=== PATIENT | male | born 1970 | race African-American/Black ===

== ENCOUNTER 2018-06-28 12:13 | Emergency (ER) | payer MEDICARE ==
[2018-06-28 12:25] VITALS: BP 177/90
--- NOTE | 2018-06-28 13:14 | ER Document Report ---
ED Medical Screen (RME) - General Chief Complaint: Foot Injury Stated Complaint: CUT ON LEFT FOOT Time Seen by Provider: 06/28/18 13:10 Mode of Arrival: Ambulatory Information source: Patient Notes: 48-year-old man with a history of diabetes, hypertension, stroke who presents with blister to the bottom of his right foot. Patient is visiting from [place] and was walking on the beach yesterday and noticed a blister this morning. Did not go in the water and he was wearing socks the whole time. He has not had any pain. He does have some amount of neuropathy but has sensation to the foot. 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 He denies any fever or pus drainage. He has cleaned the wound with soap and water , peroxide and is placed bacitracin over the wound. TRAVEL OUTSIDE OF THE [place] IN LAST 30 DAYS: No - HPI Onset: Just prior to arrival Onset/Duration: Gradual Quality of pain: No pain Associated Symptoms: None, Other - No pain, no redness, no discharge.. denies: Fever Exacerbated by: Denies Relieved by: Denies Similar symptoms previously: Yes Recently seen / treated by doctor: No - Related Data Smoking: Non-smoker Frequency of alcohol use: None Drug Abuse: None Allergies/Adverse Reactions: Sulfa (Sulfonamide Antibiotics) Adverse Reaction (Severe, Verified 06/28/18 12: 16) Past Medical History - General Information source: Patient - Social History Cigarette use (# per day): No Chew tobacco use (# tins/day): No Frequency of alcohol use: None Drug Abuse: None Lives with: Family Family history: None - Past Medical History Cardiac Medical History: Reports: Hx Hypertension Pulmonary Medical History: Reports: Hx Asthma Endocrine Medical History: Reports: Hx Diabetes Mellitus Type 2 Renal/ Medical History: Reports: Hx End Stage Renal Disease, Hx Peritoneal Dialysis Past Surgical History: Reports: Hx Orthopedic Surgery Review of Systems - Review of Systems Constitutional: denies: Chills, Fever EENT: No symptoms reported Cardiovascular: denies: Chest pain, Palpitations, Heart racing Respiratory: No symptoms reported Gastrointestinal: No symptoms reported Genitourinary: No symptoms reported Musculoskeletal: See HPI Skin: See HPI Hematologic/Lymphatic: No symptoms reported Neurological/Psychological: No symptoms reported Physical Exam - Vital signs Vitals: Temp Pulse Resp BP Pulse Ox 98.2 F 92 18 177/90 H 100 06/28/18 12:20 06/28/18 12:20 06/28/18 12:20 06/28/18 12:20 06/28/18 12:20 Notes: Physical exam: GENERAL: 48-year-old man, alert and oriented 3, no acute distress. He appears well. HEAD: Atraumatic, normocephalic. EYES: Pupils equal round and reactive to light, extraocular movements intact, sclera anicteric, conjunctiva are normal. ENT: Moist mucous membranes. NECK: Normal range of motion, supple without obvious mass LUNGS: Breath sounds clear to auscultation bilaterally and equal. No wheezes rales or rhonchi. HEART: Regular rate and rhythm without murmurs, rubs or gallops. ABDOMEN: Soft, normoactive bowel sounds. No tenderness to palpation. No guarding, no rebound. No masses appreciated. EXTREMITIES: Left foot: Patient has had amputations of the first 2 toes. He does have a blister which is popped over the right MTP joint. There is no erythema, warmth or discharge. The tissue appears viable and clean. There is no evidence of infection. There is no tenderness. There is no evidence of foreign body. The foot is well-perfused. NEUROLOGICAL: Cranial nerves II through XII grossly intact. PSYCH: Normal mood, normal affect. SKIN: Warm, Dry, normal turgor, no rashes or lesions noted. Course - Re-evaluation Re-evalutation: 06/28/18 13:24 Note: I had a long conversation with the patient. He did start taking amoxicillin (which he did have on hand) because he is concerned about getting infection. He does have renal issues. He does have an allergy to sulfa. I will place him on Keflex to continue a course of antibiotics which has a little bit better staph coverage. However, I do not see any evidence of infection at this time. Given the patient's significant history, he is at risk of infection and we talked about this. He does plan on going back to [place] tomorrow and will be following up with his doctors as soon as he gets back in town. - Vital Signs Vital signs: Temp Pulse Resp BP Pulse Ox 98.2 F 92 18 177/90 H 100 06/28/18 12:20 06/28/18 12:20 06/28/18 12:20 06/28/18 12:20 06/28/18 12:20 Doctor's Discharge - Discharge Clinical Impression: wound right foot Condition: Stable Disposition: HOME, SELF-CARE Additional Instructions: As we discussed, I would stop taking the amoxicillin. You could take the Keflex as prescribed. The wound looks quite good today: Relieving some of the excess tissue for coverage. There is no evidence of infection at this time. Given that you have started the amoxicillin, we will use Keflex instead for the next few days. Keep the wound clean. Continue using bacitracin on the outside of the wound. When not walking around, keep the wound open. Follow-up with your primary care doctors when back in [place]. Go to the nearest ER if you develop any concerns for infection: Redness, pus drainage, warmth, fever (temperature greater than 100.5). Prescriptions: Cephalexin Monohydrate [Keflex 500 mg Capsule] 500 mg PO Q6H 5 Days capsule Referrals: NAV VALERIO MD [ACTIVE STAFF] - Follow up as needed (This is the number of a good internal medicine Dr. affiliated with this [facility].) BRUCE NAVAS MD [ACTIVE STAFF] - Follow up as needed (This is the number of a kidney doctor affiliated with this [facility].)
== END 2018-06-28 13:14 | disposition home or self-care (01) ==
LOC: ER 12:13
DX: S90.821A Blister (nonthermal), right foot, initial encounter (principal); E11.40 Type 2 diabetes mellitus with diabetic neuropathy, unspecified; I10 Essential (primary) hypertension; J45.909 Unspecified asthma, uncomplicated; X58.XXXA Exposure to other specified factors, initial encounter; Z89.412 Acquired absence of left great toe; Z89.422 Acquired absence of other left toe(s)
CPT/HCPCS: 99283